=== PATIENT | male | born 1985 | race Caucasian/White ===

== ENCOUNTER 2020-04-29 15:11 | Emergency (ER) | payer BC ==
--- NOTE | 2020-04-29 15:21 | EDM.PDOC ---
ED [facility] GENERAL MEDICAL PROBLEM - General Chief Complaint: Lower Extremity Injury/Pain Stated Complaint: LT LEG SWOLLEN Time Seen by Provider: 04/29/20 15:11 Source of Information: Reports: Patient History Limitations: Reports: No Limitations - History of Present Illness INITIAL COMMENTS - FREE TEXT/NARRATIVE: Patient comes into the emergency department with complaints of a left leg injury. Patient states approximately 30 minutes ago he was moving a trailer and he tripped and fell with the trailer landing on his left lower extremity. Patient states he was able to get up and ambulate however it has slowly increasing tenderness and discomfort. He states that he has noticed a large amount of bruising as well. Patient denies any CMS or range of motion concerns but does state it is tender to touch. Patient denies any previous history to that lower extremity. Patient does state that the discomfort is more prevalent when he is ambulating on it and the pain decreases when he is just resting. He did take some Tylenol/ibuprofen prior to arrival he states that that has not helped in any way. He denies using any ice or elevation. Patient also states is been relatively healthy and has no other major concerns today. Patient denies any active COVID-19 symptoms or any positive testing Onset: Sudden Quality: Reports: Throbbing Severity: Moderate Improves with: Reports: Immobilization Worsens with: Reports: Movement Context: Reports: Activity Associated Symptoms: Reports: No Other Symptoms Treatments BELT BRANDER: Reports: Acetaminophen, NSAIDS ED ROS GENERAL - Review of Systems Review Of Systems: Comprehensive ROS is negative, except as noted in HPI. Constitutional: Reports: No Symptoms HEENT: Reports: No Symptoms Respiratory: Reports: No Symptoms Cardiovascular: Reports: No Symptoms Endocrine: Reports: No Symptoms GI/Abdominal: Reports: No Symptoms : Reports: No Symptoms Musculoskeletal: Reports: No Symptoms Skin: Reports: No Symptoms Neurological: Reports: No Symptoms Psychiatric: Reports: No Symptoms Hematologic/Lymphatic: Reports: No Symptoms ED EXAM, GENERAL - Physical Exam Exam: See Below Exam Limited By: No Limitations General Appearance: Alert, WD/WN, No Apparent Distress Peripheral Pulses: 4+: Popliteal (L), Posterior Tibial (L), Dorsalis Pedis (L) Back Exam: Full Range of Motion Extremities: Normal Inspection, Normal Range of Motion, Non-Tender, No Pedal Edema, Normal Capillary Refill Neurological: Alert, Oriented, CN II-XII Intact, Normal Cognition, Normal Reflexes Psychiatric: Normal Affect, Normal Mood Skin Exam: Warm, Dry, Intact, Normal Color Course - Orders/Labs/Meds Orders: Active Orders 24 hr Category Date Time Status Tibia Fibula Lt [CR] Stat Exams 04/29/20 15:17 Taken Departure - Departure Time of Disposition: 16:05 Disposition: Home, Self-Care 01 Condition: Good Clinical Impression: Contusion of leg, left Qualifiers: Encounter type: initial encounter Qualified Code(s): S80.12XA - Contusion of left lower leg, initial encounter - Discharge Information *PRESCRIPTION DRUG MONITORING PROGRAM REVIEWED*: Not Applicable *COPY OF PRESCRIPTION DRUG MONITORING REPORT IN PATIENT RUDY: Not Applicable Instructions: Contusion, [id number], How to Use Cold Therapy, [id number] Forms: ED Department Discharge Additional Instructions: 1. Rest 2. Can use tylenol and ibuprofen as needed for pain and discomfort 3. Diet as tolerated 4. Activity as tolerated 5. Elevated the injured area above the level of the heart to decrease swelling and discomfort. 6. Use ice 3-4 times a day at 20-minute intervals to help with any swelling and discomfort 7. Follow-up with your primary care provider symptoms continue or to progress 8. Follow with any questions or concerns 9. Discharge information has been provided regarding your injury - My Orders Last 24 Hours: My Active Orders 04/29/20 15:17 Tibia Fibula Lt [CR] Stat - Assessment/Plan Last 24 Hours: My Active Orders 04/29/20 15:17 Tibia Fibula Lt [CR] Stat Assessment:: 1. left lower leg contusion Plan: 1. X-ray completed in the emergency department results reviewed with the patient 2. Ice Applied to the affected limb 3. Medication offered to the patient- denied needing anything currently 4. Education regarding splinting, activity, [id number] medications, and follow-up care provided. 5. All questions and concerns addressed with the patient prior to discharge
--- NOTE | 2020-04-29 16:03 | CR ---
[id number] RAD/RAD Tibia Fibula Left EXAM: RAD Tibia Fibula Left CLINICAL DATA: TRAUMA COMPARISON: NO PREVIOUS SIMILAR EXAM IS AVAILABLE. FINDINGS: No fracture or dislocation is seen. There is no radiopaque foreign body in the soft tissues. There is no air in the soft tissues. There is no cortical thickening or periosteal reaction either. IMPRESSION: NEGATIVE PLAIN FILM EXAM. Eugenio Mcleod MD 04/29/20 3520 Thank you for allowing us to participate in the care of your patient.
== END 2020-04-29 16:08 | disposition home or self-care (01) ==
LOC: VM.ED 15:11
DX: S80.12XA Contusion of left lower leg, initial encounter (principal); W01.198A Fall on same level from slipping, tripping and stumbling with subsequent striking against other object, initial encounter
CPT/HCPCS: 73590-LT; 99283; 99283-25

== ENCOUNTER 2025-07-06 20:35 | Emergency (ER) | payer BC ==
[2025-07-06 20:59] LABS: BASOPHILS ABSOLUTE AUTO 0.0 x10^3/uL (0.0-0.2); BASOPHILS PERCENT AUTO 0.3 % (0.2-1.2); EOSINOPHILS ABSOLUTE AUTO 0.0 x10^3/uL (0.0-0.5); EOSINOPHILS PERCENT AUTO 0.3 % (0.0-4.0); IMMATURE GRAN ABSOLUTE AUTO 0.00 x10^3/uL (0.00-0.07); IMMATURE GRAN PERCENT AUTO 0.00 % (0.00-0.43); LYMPHOCYTES ABSOLUTE AUTO 1.3 x10^3/uL (1.0-4.8); LYMPHOCYTES PERCENT AUTO 22.9 % (25.0-50.0); MONOCYTES ABSOLUTE AUTO 0.4 x10^3/uL (0.0-0.8); MONOCYTES PERCENT AUTO 7.6 % (2.0-11.0); NEUTROPHILS ABSOLUTE AUTO 4.0 x10^3/uL (1.8-7.7); NEUTROPHILS PERCENT AUTO 68.9 % (50.0-80.0); PLATELET COUNT,PLT 200 x10^3/uL (130-400); RED BLOOD CELL COUNT 4.57 x10^6/uL (4.5-6.0); WHITE BLOOD CELL COUNT,WBC 5.8 x10^3/uL (4.0-10.0)
[2025-07-06 21:33] LABS: A/G RATIO 1.31; ALANINE AMINOTRANSFERASE,ALT 48 U/L (16-63); ASPARTATE AMNIOTRANSFERASE,AST 28 U/L (15-37); BILIRUBIN TOTAL 1.4 mg/dL (0.2-1.0); BLOOD UREA NITROGEN,BUN 20 mg/dL (7-18); CARBON DIOXIDE,CO2 23 mmol/L (21-32); CHLORIDE,CL 104 mmol/L (98-107); CREATINE KINASE,CK 293 U/L (39-308); CREATININE 0.9 mg/dL (0.70-1.30); ESTIMATED GFR 112 mL/min (>=60); GLUCOSE RANDOM 92 mg/dL (70-99); POTASSIUM,K 3.7 mmol/L (3.5-5.1); PROTEIN TOTAL,TP 7.4 g/dL (6.4-8.2); SODIUM,NA 141 mmol/L (136-145)
[2025-07-06] MEDS: Ketorolac 15 MG/ML SDV IVPUSH ONE (21:43)
== END 2025-07-06 21:54 | disposition home or self-care (01) ==
LOC: VM.ED 20:35
DX: R07.89 Other chest pain (principal)
CPT/HCPCS: 36415; 71046; 80053; 82550; 84484; 85025; 96374; 99285; J1885